=== PATIENT | male | born 1945 | race African-American/Black ===

== ENCOUNTER → 2017-02-14 | Outpatient (CLI) | payer MEDICARE, MEDICAID ==
[~2017-02-14] MED LIST: CLOP75TA2 PO; FLUT1DIS5 IH; FURO40TA5 PO; HYDR-3511 PO; LANS30CA10 PO; LIDOCAINE HCL 1% 20ML VIAL (Pyxis) INJ ONE; LOSA100T3 PO; PRO-AIR HFA IH; SIMV20TA6 PO; SODIUM BICARBONATE 8.4% 1 MEQ/ML 50ML SYR IV ONE; SPIR25TA4 PO
== END | disposition home or self-care (01) ==
LOC: US 09:23
PROVIDERS: ATTEND Specialist
DX: M79.9 Soft tissue disorder, unspecified (principal); Z85.118 Personal history of other malignant neoplasm of bronchus and lung
CPT/HCPCS: 49180; 76705; 76942; 88305; J3490

== ENCOUNTER → 2021-01-05 | Day surgery (SDC) | payer MEDICARE, MEDICAID ==
[~2021-01-05] MED LIST changes: +CLOP-31 PO; -CLOP75TA2 PO; +FENTANYL CITRATE/PF 50MCG/ML 2ML VIAL ONE; -HYDR-3511 PO; +HYDR-3512 PO; +IODIXANOL 320MG/ML 100 ML BOTTLE IV ONE; +IOHEXOL-300 100 ML BOTTLE ONE; -LANS30CA10 PO; +LANS30CA52 PO; +MIDAZOLAM HCL 2 MG/2 ML VIAL ONE; +ONDANSETRON HCL 4MG/2ML INJ IV PRN; +SIMV-43 PO; -SIMV20TA6 PO; -SODIUM BICARBONATE 8.4% 1 MEQ/ML 50ML SYR IV ONE; -SPIR25TA4 PO; +SPIR25TA6 PO
== END | disposition home or self-care (01) ==
LOC: CCL 06:19
PROVIDERS: ATTEND Specialist
DX: I70.201 Unspecified atherosclerosis of native arteries of extremities, right leg (principal); J44.9 Chronic obstructive pulmonary disease, unspecified; E78.00 Pure hypercholesterolemia, unspecified; I25.10 Atherosclerotic heart disease of native coronary artery without angina pectoris; I11.0 Hypertensive heart disease with heart failure; I50.9 Heart failure, unspecified; Z85.118 Personal history of other malignant neoplasm of bronchus and lung; Z79.899 Other long term (current) drug therapy; Z98.890 Other specified postprocedural states; Z87.891 Personal history of nicotine dependence; Z88.8 Allergy status to other drugs, medicaments and biological substances
CPT/HCPCS: 36246; 75710; C1760; C1769; C1887; C1893; C1894; J1644; J2250; J3010; J3490; Q9967

== ENCOUNTER 2021-01-13 04:26 | Inpatient (IN) | payer MEDICARE, MEDICAID ==
[~2021-01-13] VITALS: Ht 182.9 cm; Wt 64.0 kg
[~2021-01-13 04:26] MED LIST changes: -FENTANYL CITRATE/PF 50MCG/ML 2ML VIAL ONE; -IODIXANOL 320MG/ML 100 ML BOTTLE IV ONE; -IOHEXOL-300 100 ML BOTTLE ONE; -LIDOCAINE HCL 1% 20ML VIAL (Pyxis) INJ ONE; -MIDAZOLAM HCL 2 MG/2 ML VIAL ONE; -ONDANSETRON HCL 4MG/2ML INJ IV PRN
[2021-01-13] MEDS: ALBUTEROL (0.083%) 2.5MG/3ML NEB HHN SCH ×3 (04:41→06:48)
[2021-01-13] MEDS ORDERED: IPRATROPIUM BROMIDE (0.02%) 0.5MG/2.5ML NEB HHN STA (04:49)
[2021-01-13] MEDS ORDERED: METHYLPREDNISOLONE SOD SUCC 125 MG/2 ML VIAL IV STA (04:49)
[2021-01-13 05:17] LABS: HEMATOCRIT. 37.1 % (42.0-52.0); HEMOGLOBIN. 11.8 g/dL (14.0-18.0); MEAN CORPUSCULAR HEMOGLOBIN 31.5 pg (28.0-32.0); MEAN CORPUSCULAR VOLUME 99.3 fL (80.0-94.0); MEAN PLATELET VOLUME 10.7 fl (7.4-10.4); PLATELET 189 x1000/uL (130-400); RED BLOOD CELL COUNT 3.73 mill/uL (4.7-6.1); RED CELL DISTRIBUTION WIDTH 13.9 % (11.6-14.6)
[2021-01-13 05:25] LABS: CHLORIDE 112 mEq/L (98-107)
[2021-01-13] MEDS ORDERED: CEFTRIAXONE 1 G PREMIX 50 ML IV ONE (05:45)
[2021-01-13] MEDS ORDERED: AZITHROMYCIN 500 MG in DEXT 5% WATER 250 ML IV SCH (05:45)
[2021-01-13 05:52] LABS: PLATELET ESTIMATE NORMAL
[2021-01-13] MEDS ORDERED: DOCUSATE SODIUM 100MG CAPSULE PO PRN (07:15)
[2021-01-13] MEDS ORDERED: MAGNESIUM/ALUMINUM HYDROXIDE/SIMETHICONE 30ML UDC PO PRN (07:15)
[2021-01-13] MEDS ORDERED: ONDANSETRON HCL 4MG/2ML INJ IV PRN (07:15)
[2021-01-13] MEDS ORDERED: GUAIFENESIN 200MG/10ML SUGAR FREE UDC PO PRN (07:15)
[2021-01-13] MEDS ORDERED: CLONIDINE 0.1MG TABLET PO PRN (07:15)
[2021-01-13] MEDS ORDERED: IPRATROPIUM/ALBUTEROL 0.5-3(2.5)MG/3ML NEB HHN PRN ×2 (07:15→23:45)
[2021-01-13] MEDS ORDERED: ASPIRIN 325MG EC TABLET PO ONE (08:00)
[2021-01-13 08:30] VITALS: BP 147/97
[2021-01-13] MEDS: ENOXAPARIN 40MG/0.4ML SYR SUBCUT SCH (08:45)
[2021-01-13] MEDS: AMLODIPINE 10MG TABLET PO SCH (08:46)
[2021-01-13] MEDS ORDERED: FUROSEMIDE 40MG/4ML VIAL IV SCH (09:00)
[2021-01-13] MEDS ORDERED: NON FORMULARY PATIENT HOME MED XX SCH (10:00)
[2021-01-13] MEDS: SPIRONOLACTONE 25MG TABLET PO SCH (11:38)
[2021-01-13] MEDS: METHYLPREDNISOLONE SOD SUCC 125 MG/2 ML VIAL IV SCH ×3 (11:38→23:14)
[2021-01-13 12:01] VITALS: BP 139/61
[2021-01-13] MEDS: SACUBITRIL/VALSARTAN 49MG/51MG TABLET PO SCH (15:59)
[2021-01-13 16:03] VITALS: BP 130/67
[2021-01-13 20:00] VITALS: BP 124/72
[2021-01-13] MEDS: ATORVASTATIN CALCIUM 40MG TABLET PO SCH (21:41)
[2021-01-14] VITALS: BP 126/67
[2021-01-14 04:00] VITALS: BP 128/83
[2021-01-14] MEDS: AZITHROMYCIN 500 MG in DEXT 5% WATER 250 ML IV SCH (05:55)
[2021-01-14] MEDS: METHYLPREDNISOLONE SOD SUCC 125 MG/2 ML VIAL IV SCH ×3 (05:57→21:36)
[2021-01-14] MEDS ORDERED: AZITHROMYCIN 500 MG in DEXT 5% WATER 250 ML IV SCH (06:00)
[2021-01-14 06:44] LABS: HEMATOCRIT. 35.7 % (42.0-52.0); HEMOGLOBIN. 12.1 g/dL (14.0-18.0); MEAN CORPUSCULAR HEMOGLOBIN 33.3 pg (28.0-32.0); MEAN CORPUSCULAR VOLUME 97.9 fL (80.0-94.0); MEAN PLATELET VOLUME 10.9 fl (7.4-10.4); PLATELET 178 x1000/uL (130-400); RED BLOOD CELL COUNT 3.64 mill/uL (4.7-6.1); RED CELL DISTRIBUTION WIDTH 14.2 % (11.6-14.6)
[2021-01-14 06:48] LABS: CHLORIDE 105 mEq/L (98-107)
[2021-01-14 06:59] LABS: HDL CHOLESTEROL 106 mg/dL (40-59); LDL CHOLESTEROL 101 mg/dL (5-100)
[2021-01-14] MEDS ORDERED: CEFTRIAXONE 1 G PREMIX 50 ML IV SCH (07:00)
[2021-01-14] MEDS: CEFTRIAXONE 1,000 MG in DEXTROSE 5% WATER 50 ML IV SCH (07:01)
[2021-01-14 08:24] VITALS: BP 115/71
[2021-01-14 08:46] LABS: BG BASE EXCESS 2.1 mmol/L (-2.0-2.0); BG CARBOXYHEMOGLOBIN 0.3 % (0.5-1.5); BG DEOXYHEMOGLOBIN 1.1 % (0.0-5.0); BG FRACTION INSPIRED OXYGEN 30; BG HCO3 ACT 25.8 mmol/L (22.0-26.0); BG METHEMOGLOBIN 0.2 % (0.0-1.5); BG OXYGEN SATURATION 98.9 % (92.0-98.5); BG OXYHEMOGLOBIN 98.4 % (94.0-97.0); BG PCO2 36.7 mmHg (35.0-45.0); BG PH 7.464 (7.350-7.450); BG SAMPLE SITE RIGHT RADIAL; BG TOTAL HEMOGLOBIN 12.5 g/dL (12.0-18.0); BG VENT MODE NASAL CANNULA
[2021-01-14] MEDS: SPIRONOLACTONE 25MG TABLET PO SCH (08:54)
[2021-01-14] MEDS: AMLODIPINE 10MG TABLET PO SCH (08:54)
[2021-01-14] MEDS: FUROSEMIDE 40MG/4ML VIAL IV SCH (08:54)
[2021-01-14] MEDS: ENOXAPARIN 40MG/0.4ML SYR SUBCUT SCH (08:55)
[2021-01-14] MEDS: SACUBITRIL/VALSARTAN 49MG/51MG TABLET PO SCH ×2 (10:10→18:03)
[2021-01-14 12:00] VITALS: BP 110/65
[2021-01-14 13:16] LABS: PLATELET ESTIMATE NORMAL
[2021-01-14 16:00] VITALS: BP 120/61
[2021-01-14 20:00] VITALS: BP 124/58
[2021-01-14] MEDS: IPRATROPIUM/ALBUTEROL 0.5-3(2.5)MG/3ML NEB HHN SCH (21:10)
[2021-01-14] MEDS: ATORVASTATIN CALCIUM 40MG TABLET PO SCH (21:35)
[2021-01-15] VITALS (7 sets, daily range): BP systolic 92–133; BP diastolic 59–69
[2021-01-15] MEDS: IPRATROPIUM/ALBUTEROL 0.5-3(2.5)MG/3ML NEB HHN SCH ×4 (02:33→21:20)
[2021-01-15] MEDS: ACETAMINOPHEN 325MG TABLET PO PRN (04:41)
[2021-01-15] MEDS: CEFTRIAXONE 1,000 MG in DEXTROSE 5% WATER 50 ML IV SCH (05:01)
[2021-01-15] MEDS: METHYLPREDNISOLONE SOD SUCC 125 MG/2 ML VIAL IV SCH ×3 (05:01→20:31)
[2021-01-15] MEDS: AZITHROMYCIN 500 MG in DEXT 5% WATER 250 ML IV SCH (05:44)
[2021-01-15] MEDS: FUROSEMIDE 40MG/4ML VIAL IV SCH (08:17)
[2021-01-15] MEDS: SPIRONOLACTONE 25MG TABLET PO SCH (08:18)
[2021-01-15] MEDS: AMLODIPINE 10MG TABLET PO SCH (08:18)
[2021-01-15] MEDS: ENOXAPARIN 40MG/0.4ML SYR SUBCUT SCH (08:19)
[2021-01-15] MEDS: SACUBITRIL/VALSARTAN 49MG/51MG TABLET PO SCH ×2 (08:19→17:53)
[2021-01-15] MEDS: OMEPRAZOLE 20MG CAPSULE EXTENDED RELEASE PO SCH (17:53)
[2021-01-15] MEDS: ATORVASTATIN CALCIUM 40MG TABLET PO SCH (20:33)
[2021-01-16] MEDS: IPRATROPIUM/ALBUTEROL 0.5-3(2.5)MG/3ML NEB HHN SCH ×4 (01:11→20:08)
[2021-01-16 04:00] VITALS: BP 109/73
[2021-01-16] MEDS: CEFTRIAXONE 1,000 MG in DEXTROSE 5% WATER 50 ML IV SCH (05:07)
[2021-01-16] MEDS: AZITHROMYCIN 500 MG in DEXT 5% WATER 250 ML IV SCH (05:07)
[2021-01-16] MEDS: OMEPRAZOLE 20MG CAPSULE EXTENDED RELEASE PO SCH (05:46)
[2021-01-16 08:00] VITALS: BP 123/72
[2021-01-16] MEDS: ENOXAPARIN 40MG/0.4ML SYR SUBCUT SCH (09:16)
[2021-01-16] MEDS: METHYLPREDNISOLONE SOD SUCC 125 MG/2 ML VIAL IV SCH ×2 (09:16→20:58)
[2021-01-16] MEDS: FUROSEMIDE 40MG/4ML VIAL IV SCH (09:16)
[2021-01-16] MEDS: SPIRONOLACTONE 25MG TABLET PO SCH (09:17)
[2021-01-16] MEDS: AMLODIPINE 10MG TABLET PO SCH (09:17)
[2021-01-16] MEDS: SACUBITRIL/VALSARTAN 49MG/51MG TABLET PO SCH ×2 (09:17→16:32)
[2021-01-16 12:00] VITALS: BP 100/59
[2021-01-16 16:00] VITALS: BP 105/62
[2021-01-16 20:20] VITALS: BP 132/64
[2021-01-16] MEDS: ATORVASTATIN CALCIUM 40MG TABLET PO SCH (20:59)
[2021-01-17 00:25] VITALS: BP 105/53
[2021-01-17] MEDS: ACETAMINOPHEN 325MG TABLET PO PRN (01:33)
[2021-01-17] MEDS: IPRATROPIUM/ALBUTEROL 0.5-3(2.5)MG/3ML NEB HHN SCH ×3 (02:11→13:27)
[2021-01-17 04:00] VITALS: BP 103/53
[2021-01-17] MEDS: CEFTRIAXONE 1,000 MG in DEXTROSE 5% WATER 50 ML IV SCH (06:15)
[2021-01-17] MEDS: AZITHROMYCIN 500 MG in DEXT 5% WATER 250 ML IV SCH (06:32)
[2021-01-17] MEDS ORDERED: FAMOTIDINE 20MG TABLET PO SCH (06:45)
[2021-01-17 08:00] VITALS: BP 120/63
[2021-01-17] MEDS ORDERED: METHYLPREDNISOLONE SOD SUCC 125 MG/2 ML VIAL IV SCH (09:00)
[2021-01-17] MEDS: ENOXAPARIN 40MG/0.4ML SYR SUBCUT SCH (09:19)
[2021-01-17] MEDS: FUROSEMIDE 40MG/4ML VIAL IV SCH (09:19)
[2021-01-17] MEDS: SACUBITRIL/VALSARTAN 49MG/51MG TABLET PO SCH (09:20)
[2021-01-17] MEDS: SPIRONOLACTONE 25MG TABLET PO SCH (09:20)
[2021-01-17 10:22] VITALS: BP 120/63
[2021-01-17] MEDS: AMLODIPINE 10MG TABLET PO SCH (11:42)
[2021-01-17 12:00] VITALS: BP 120/65
[2021-01-17 12:18] LABS: HEMATOCRIT 41.1 % (42.0-52.0); HEMOGLOBIN 13.8 g/dL (14.0-18.0); MEAN CORPUSCULAR HEMOGLOBIN 32.9 pg (28.0-32.0); MEAN CORPUSCULAR VOLUME 97.9 fL (80.0-94.0); PLATELET 222 x1000/uL (130-400); RED CELL DISTRIBUTION WIDTH 13.4 % (11.6-14.6)
[2021-01-17 12:31] LABS: CHLORIDE 102 mEq/L (98-107)
[2021-01-17 13:07] VITALS: BP 120/65
[2021-01-27] MEDS ORDERED: OMEP20CA14 PO (08:10)
[2021-01-27] MEDS ORDERED: AMLO5TAB88 PO (08:10)
[2021-01-27] MEDS ORDERED: P20 PO (08:10)
[2021-01-27] MEDS ORDERED: MULT-1116 MT (08:10)
[2021-01-27] MEDS ORDERED: SACU1TAB4 PO (08:10)
== END 2021-01-17 15:45 | disposition home or self-care (01) | DRG 871 ==
LOC: ER 04:44 → 7WST 06:31 → ENRESERV 07:09 → 5WST 01-14 00:35
PROVIDERS: ADMIT Hospitalist; ATTEND Hospitalist
DX: A41.9 Sepsis, unspecified organism (principal); J18.9 Pneumonia, unspecified organism; J96.21 Acute and chronic respiratory failure with hypoxia; I50.23 Acute on chronic systolic (congestive) heart failure; I43 Cardiomyopathy in diseases classified elsewhere; I47.2 Ventricular tachycardia; E78.00 Pure hypercholesterolemia, unspecified; E78.5 Hyperlipidemia, unspecified; I11.0 Hypertensive heart disease with heart failure; J43.9 Emphysema, unspecified; I25.10 Atherosclerotic heart disease of native coronary artery without angina pectoris; I73.9 Peripheral vascular disease, unspecified; Z20.822 Contact with and (suspected) exposure to COVID-19; I27.20 Pulmonary hypertension, unspecified; I35.0 Nonrheumatic aortic (valve) stenosis; Z23 Encounter for immunization; Z79.82 Long term (current) use of aspirin; Z85.118 Personal history of other malignant neoplasm of bronchus and lung; Z87.891 Personal history of nicotine dependence; Z99.81 Dependence on supplemental oxygen; Z79.899 Other long term (current) drug therapy; Z92.21 Personal history of antineoplastic chemotherapy
CPT/HCPCS: 36415; 36600; 71045; 71275; 80048; 80053; 80061; 82375; 82805; 83735; 83880; 84484; 85025; 85027; 85379; 93005; 93306; 93970; 94640; 99291; J0456; J0696; J1650; J1940; J2930; J7040; J7060; Q9967; U0003; U0005

== ENCOUNTER 2021-02-17 10:16 | Inpatient (IN) | payer MEDICARE, MEDICAID ==
[~2021-02-17] VITALS: Ht 182.9 cm; Wt 63.5 kg
[~2021-02-17 10:16] MED LIST changes: +AMLO5TAB88 PO; -CLOP-31 PO; +CLOP75TA4 PO; +MULT-1116 MT; +OMEP20CA14 PO; +P20 PO; +SACU1TAB4 PO
[2021-02-17] MEDS ORDERED: SODIUM CHLORIDE 0.9% 250 ML IV ONE (11:00)
[2021-02-17 11:03] LABS: BASOPHILS % 0.4 % (0.0-2.0); EOSINOPHILS % 0.1 % (0.0-5.0); HEMATOCRIT. 30.1 % (42.0-52.0); HEMOGLOBIN. 10.1 g/dL (14.0-18.0); LYMPHOCYTES % 8.6 % (20.0-50.0); MEAN CORPUSCULAR HEMOGLOBIN 32.9 pg (28.0-32.0); MEAN CORPUSCULAR VOLUME 98.1 fL (80.0-94.0); MEAN PLATELET VOLUME 10.1 fl (7.4-10.4); NEUTROPHILS % 85.9 % (40.0-76.0); PLATELET 188 x1000/uL (130-400); RED BLOOD CELL COUNT 3.07 mill/uL (4.7-6.1); RED CELL DISTRIBUTION WIDTH 14.2 % (11.6-14.6)
[2021-02-17 11:09] LABS: CHLORIDE 103 mEq/L (98-107)
[2021-02-17 11:11] LABS: PROTHROMBIN TIME 11.2 sec (9.6-11.0)
[2021-02-17] MEDS ORDERED: ASPIRIN 325MG EC TABLET PO ONE (11:30)
[2021-02-17] MEDS ORDERED: ASPIRIN 81MG TABLET PO ONE (12:45)
[2021-02-17] MEDS ORDERED: ACETAMINOPHEN 325MG TABLET PO PRN (14:00)
[2021-02-17] MEDS ORDERED: ONDANSETRON HCL 4MG/2ML INJ IV PRN (14:00)
[2021-02-17] MEDS ORDERED: GUAIFENESIN 200MG/10ML SUGAR FREE UDC PO PRN (14:00)
[2021-02-17] MEDS ORDERED: MAGNESIUM/ALUMINUM HYDROXIDE/SIMETHICONE 30ML UDC PO PRN (14:00)
[2021-02-17] MEDS ORDERED: AMLODIPINE 5MG TABLET PO SCH (14:00)
[2021-02-17] MEDS ORDERED: HYDROCODONE/ACETAMINOPHEN 5/325MG TABLET PO PRN (14:00)
[2021-02-17] MEDS ORDERED: CLONIDINE 0.1MG TABLET PO PRN (14:00)
[2021-02-17] MEDS ORDERED: DOCUSATE SODIUM 100MG CAPSULE PO PRN (14:00)
[2021-02-17] MEDS ORDERED: FUROSEMIDE 20MG TABLET PO SCH (14:30)
[2021-02-17] MEDS ORDERED: NON FORMULARY PATIENT HOME MED XX SCH (14:45)
[2021-02-17] MEDS ORDERED: ENOXAPARIN 40MG/0.4ML SYR SUBCUT SCH (15:00)
[2021-02-17] MEDS ORDERED: FUROSEMIDE 40MG/4ML VIAL IVP NR (20:00)
[2021-02-17] MEDS ORDERED: HYDRALAZINE 20MG/ML VIAL IV PRN (20:00)
[2021-02-17] MEDS ORDERED: ATORVASTATIN CALCIUM 40MG TABLET PO SCH (21:00)
[2021-02-17] MEDS ORDERED: CARVEDILOL 6.25 MG TABLET PO SCH (21:00)
[2021-02-17] MEDS ORDERED: SACUBITRIL/VALSARTAN 49MG/51MG TABLET PO SCH (21:00)
[2021-02-17] MEDS ORDERED: MAGNESIUM 2 G PREMIX 50 ML IV NR (21:30)
[2021-02-17] MEDS ORDERED: DILTIAZEM HCL 30MG TABLET PO SCH (22:00)
[2021-02-17] MEDS: IPRATROPIUM/ALBUTEROL 0.5-3(2.5)MG/3ML NEB HHN PRN (22:15)
[2021-02-17 23:00] VITALS: BP 134/70
[2021-02-18] VITALS (7 sets, daily range): BP systolic 20–146; BP diastolic 54–112
[2021-02-18] MEDS ORDERED: ATORVASTATIN CALCIUM 40MG TABLET PO SCH (00:30)
[2021-02-18] MEDS: DILTIAZEM HCL 30MG TABLET PO SCH ×3 (00:48→16:37)
[2021-02-18] MEDS ORDERED: MAGNESIUM 2 G PREMIX 50 ML IV NR (01:00)
[2021-02-18] MEDS ORDERED: SACUBITRIL/VALSARTAN 49MG/51MG TABLET PO SCH (01:00)
[2021-02-18 07:30] LABS: BASOPHILS % 0.5 % (0.0-2.0); EOSINOPHILS % 0.3 % (0.0-5.0); HEMATOCRIT. 31.3 % (42.0-52.0); HEMOGLOBIN. 10.3 g/dL (14.0-18.0); LYMPHOCYTES % 8.1 % (20.0-50.0); MEAN CORPUSCULAR HEMOGLOBIN 32.3 pg (28.0-32.0); MEAN CORPUSCULAR VOLUME 98.1 fL (80.0-94.0); MEAN PLATELET VOLUME 10.2 fl (7.4-10.4); MONOCYTES % 6.8 % (2.0-8.0); NEUTROPHILS % 84.3 % (40.0-76.0); PLATELET 169 x1000/uL (130-400); RED BLOOD CELL COUNT 3.19 mill/uL (4.7-6.1)
[2021-02-18 07:39] LABS: CHLORIDE 109 mEq/L (98-107)
[2021-02-18] MEDS: IPRATROPIUM/ALBUTEROL 0.5-3(2.5)MG/3ML NEB HHN PRN (08:21)
[2021-02-18] MEDS ORDERED: POTASSIUM CHLORIDE 20MEQ TABLET SR PO NR (08:58)
[2021-02-18] MEDS ORDERED: CLOPIDOGREL 75MG TABLET PO SCH (09:00)
[2021-02-18] MEDS ORDERED: SPIRONOLACTONE 25MG TABLET PO SCH (09:00)
[2021-02-18] MEDS ORDERED: FUROSEMIDE 40MG/4ML VIAL IVP SCH (09:00)
[2021-02-18] MEDS ORDERED: ASPIRIN 81MG EC TABLET PO SCH (09:00)
[2021-02-18] MEDS ORDERED: POTASSIUM CHLORIDE INJ 40 MEQ in DEXT 5% WATER 250 ML IV NR (10:00)
[2021-02-18] MEDS: APIXABAN 5 MG TABLET PO SCH ×2 (11:44→16:30)
[2021-02-18] MEDS ORDERED: NALOXONE HCL 0.4MG/ML VIAL IV PRN (15:00)
== END 2021-02-18 17:10 | disposition home or self-care (01) | DRG 309 ==
LOC: ER 10:16 → EDBEDREQTM 11:25 → EDBEDREQ 11:25 → 8WST 13:10 → EDBEDREQTM 13:23 → EDBEDREQ 13:23 → ENRESERV 21:19
PROVIDERS: ADMIT Hospitalist; ATTEND Hospitalist
DX: I48.92 Unspecified atrial flutter (principal); R64 Cachexia; Z68.1 Body mass index [BMI] 19.9 or less, adult; I50.22 Chronic systolic (congestive) heart failure; Z95.811 Presence of heart assist device; I11.0 Hypertensive heart disease with heart failure; I73.9 Peripheral vascular disease, unspecified; E78.00 Pure hypercholesterolemia, unspecified; E78.5 Hyperlipidemia, unspecified; J44.9 Chronic obstructive pulmonary disease, unspecified; I25.10 Atherosclerotic heart disease of native coronary artery without angina pectoris; I27.20 Pulmonary hypertension, unspecified; I35.0 Nonrheumatic aortic (valve) stenosis; I43 Cardiomyopathy in diseases classified elsewhere; D53.9 Nutritional anemia, unspecified; Z79.82 Long term (current) use of aspirin; Z79.899 Other long term (current) drug therapy; Z82.49 Family history of ischemic heart disease and other diseases of the circulatory system; Z85.118 Personal history of other malignant neoplasm of bronchus and lung; Z87.891 Personal history of nicotine dependence; Z95.820 Peripheral vascular angioplasty status with implants and grafts; Z99.81 Dependence on supplemental oxygen; Z79.1 Long term (current) use of non-steroidal anti-inflammatories (NSAID); R00.0 Tachycardia, unspecified
CPT/HCPCS: 36415; 71045; 80048; 80053; 83735; 83880; 84132; 84484; 85025; 87070; 93005; 94640; 99291; J1650; J1940; J2405; J3475; J3480; J7030; J7060

== ENCOUNTER → 2021-07-04 | Day surgery (SDC) | payer MEDICARE, MEDICAID ==
[~2021-07-04] VITALS: Ht 180.3 cm; Wt 63.5 kg
[~2021-07-04] MED LIST changes: +ACET-2708 PO; -AMLO5TAB88 PO; +APIX5TAB MT; +ASPI-1497 MT; +ATOR40TA70 MT; +BACITRACIN 15GM TUBE TOP ONE; +BUPIVACAINE HCL/PF 0.5% (5MG/ML) 10ML ONE; +CLOP-31 PO; -CLOP75TA4 PO; +DILT30TA38 MT; +GENTAMICIN SULF 40MG/ML 2ML VIAL ONE; +HYDROMORPHONE HCL/PF 2MG/ML CPJ IV PRN; +LABETALOL 5MG/ML SYR 20 MG/4 ML SYRINGE IV PRN; +LACTATED RINGERS 1,000 ML IV SCH; -LANS30CA52 PO; +LEVO750T46 PO; +LIDOCAINE HCL 1% 20ML VIAL (Pyxis) INJ ONE; -LOSA100T3 PO; +MEPERIDINE HCL/PF 25MG/ML CPJ IV PRN; -MULT-1116 MT; +MULT-1146 PO; +ONDANSETRON HCL 4MG/2ML INJ IV PRN; +POLYMYXIN B SULFATE 500000 UNITS/VIAL ONE; -SIMV-43 PO; +SULF-13 PO
== END | disposition home or self-care (01) ==
LOC: SURGERY 11:23
PROVIDERS: ATTEND Podiatrist Foot & Ankle Surgery
DX: I73.9 Peripheral vascular disease, unspecified (principal); L97.819 Non-pressure chronic ulcer of other part of right lower leg with unspecified severity; E78.00 Pure hypercholesterolemia, unspecified; Z87.891 Personal history of nicotine dependence; Z79.82 Long term (current) use of aspirin; Z79.899 Other long term (current) drug therapy; Z98.890 Other specified postprocedural states; Z82.49 Family history of ischemic heart disease and other diseases of the circulatory system; Z20.822 Contact with and (suspected) exposure to COVID-19
CPT/HCPCS: 11044; 87070; 87075; 87077; 87186; 87205; 87426; 88311; C1713; J3490; J1580

== ENCOUNTER 2021-12-05 15:23 | Inpatient (IN) | payer MEDICARE, MEDICAID ==
[~2021-12-05] VITALS: Ht 182.9 cm; Wt 65.3 kg
[~2021-12-05 15:23] MED LIST changes: -BACITRACIN 15GM TUBE TOP ONE; -BUPIVACAINE HCL/PF 0.5% (5MG/ML) 10ML ONE; -CLOP-31 PO; -DILT30TA38 MT; -FLUT1DIS5 IH; -GENTAMICIN SULF 40MG/ML 2ML VIAL ONE; -HYDR-3512 PO; -HYDROMORPHONE HCL/PF 2MG/ML CPJ IV PRN; -LABETALOL 5MG/ML SYR 20 MG/4 ML SYRINGE IV PRN; -LACTATED RINGERS 1,000 ML IV SCH; -LIDOCAINE HCL 1% 20ML VIAL (Pyxis) INJ ONE; -MEPERIDINE HCL/PF 25MG/ML CPJ IV PRN; -ONDANSETRON HCL 4MG/2ML INJ IV PRN; -POLYMYXIN B SULFATE 500000 UNITS/VIAL ONE; -SPIR25TA6 PO
[2021-12-05] MEDS ORDERED: IPRATROPIUM BROMIDE (0.02%) 0.5MG/2.5ML NEB HHN STA (16:12)
[2021-12-05] MEDS ORDERED: ALBUTEROL (0.083%) 2.5MG/3ML NEB HHN STA (16:12)
[2021-12-05 17:15] LABS: BASOPHILS % 0.4 % (0.0-2.0); EOSINOPHILS % 0.5 % (0.0-5.0); HEMATOCRIT. 31.9 % (42.0-52.0); HEMOGLOBIN. 10.7 g/dL (14.0-18.0); LYMPHOCYTES % 7.5 % (20.0-50.0); MEAN CORPUSCULAR VOLUME 95.7 fL (80.0-94.0); MEAN PLATELET VOLUME 10.1 fl (7.4-10.4); MONOCYTES % 4.1 % (2.0-8.0); NEUTROPHILS % 87.5 % (40.0-76.0); PLATELET 190 x1000/uL (130-400); RED BLOOD CELL COUNT 3.33 mill/uL (4.7-6.1); RED CELL DISTRIBUTION WIDTH 13.8 % (11.6-14.6)
[2021-12-05 17:25] LABS: CHLORIDE 109 mEq/L (98-107); INR 1.1; PROTHROMBIN TIME 11.5 sec (9.6-11.0)
[2021-12-05] MEDS ORDERED: POTASSIUM CHLORIDE 20MEQ TABLET SR PO ONE (19:00)
[2021-12-05] MEDS ORDERED: FUROSEMIDE 40MG/4ML VIAL IVP ONE (19:00)
[2021-12-05] MEDS ORDERED: GUAIFENESIN 200MG/10ML SUGAR FREE UDC PO PRN (20:30)
[2021-12-05] MEDS ORDERED: DOCUSATE SODIUM 100MG CAPSULE PO PRN (20:30)
[2021-12-05] MEDS ORDERED: HYDRALAZINE 20MG/ML VIAL IV PRN (20:30)
[2021-12-05] MEDS ORDERED: ONDANSETRON HCL 4MG/2ML INJ IV PRN (20:30)
[2021-12-05] MEDS ORDERED: MAGNESIUM/ALUMINUM HYDROXIDE/SIMETHICONE 30ML UDC PO PRN (20:30)
[2021-12-05] MEDS ORDERED: HYDROCODONE/ACETAMINOPHEN 5/325MG TABLET PO PRN (20:30)
[2021-12-05] MEDS ORDERED: LORAZEPAM 2MG/ML CPJ IV PRN (20:30)
[2021-12-05] MEDS ORDERED: CLONIDINE 0.1MG TABLET PO PRN (20:30)
[2021-12-05] MEDS ORDERED: MORPHINE SULFATE 2 MG/ML CPJ (NOT FOR IM USE) IV PRN (20:30)
[2021-12-05] MEDS ORDERED: ACETAMINOPHEN 325MG TABLET PO PRN (20:30)
[2021-12-05] MEDS ORDERED: DIPHENHYDRAMINE 50MG/ML VIAL IV PRN (20:30)
[2021-12-05] MEDS: SODIUM CHLORIDE 0.9% INJ 3ML FLUSH IVF SCH (21:30)
[2021-12-05] MEDS: ENOXAPARIN 40MG/0.4ML SYR SUBCUT SCH (21:30)
[2021-12-05 21:34] LABS: CLARITY URINE CLEAR (CLEAR); COLOR URINE YELLOW (YELLOW); KETONES URINE NEGATIVE (NEGATIVE); LEUKOCYTE ESTERASE URINE NEGATIVE (NEGATIVE); NITRITE URINE NEGATIVE (NEGATIVE); OCCULT BLOOD URINE NEGATIVE (NEGATIVE); PH URINE 7.5 (4.5-8.0); PROTEIN URINE NEGATIVE (NEGATIVE); SPECIFIC GRAVITY URINE 1.006 (1.005-1.030)
[2021-12-05 22:15] VITALS: BP 126/66
[2021-12-05] MEDS: IPRATROPIUM/ALBUTEROL 0.5-3(2.5)MG/3ML NEB HHN PRN (23:34)
[2021-12-06] VITALS: BP 132/70
[2021-12-06] MEDS ORDERED: *PATIENT'S OWN MEDICATION STORAGE XX SCH (00:45)
[2021-12-06 04:00] VITALS: BP 120/59
[2021-12-06] MEDS: IPRATROPIUM/ALBUTEROL 0.5-3(2.5)MG/3ML NEB HHN PRN ×2 (04:52→10:19)
[2021-12-06] MEDS: SODIUM CHLORIDE 0.9% INJ 3ML FLUSH IVF SCH ×3 (05:01→22:00)
[2021-12-06 06:12] LABS: BASOPHILS % 0.6 % (0.0-2.0); EOSINOPHILS % 3.7 % (0.0-5.0); HEMATOCRIT. 31.5 % (42.0-52.0); HEMOGLOBIN. 10.6 g/dL (14.0-18.0); LYMPHOCYTES % 18.4 % (20.0-50.0); MEAN CORPUSCULAR HEMOGLOBIN 32.2 pg (28.0-32.0); MEAN CORPUSCULAR VOLUME 95.3 fL (80.0-94.0); MEAN PLATELET VOLUME 10.3 fl (7.4-10.4); NEUTROPHILS % 69.3 % (40.0-76.0); PLATELET 183 x1000/uL (130-400); RED CELL DISTRIBUTION WIDTH 13.6 % (11.6-14.6)
[2021-12-06 06:49] LABS: CHLORIDE 107 mEq/L (98-107)
[2021-12-06 08:00] VITALS: BP 138/68
[2021-12-06] MEDS ORDERED: POTASSIUM CHLORIDE 20MEQ TABLET SR PO NR (08:00)
[2021-12-06] MEDS: POTASSIUM CHLORIDE 20MEQ TABLET SR PO SCH (10:00)
[2021-12-06] MEDS: SPIRONOLACTONE 25MG TABLET PO SCH (10:11)
[2021-12-06] MEDS: ASPIRIN 81MG TABLET PO SCH (10:11)
[2021-12-06] MEDS: CLOPIDOGREL 75MG TABLET PO SCH (10:11)
[2021-12-06] MEDS: FUROSEMIDE 40MG/4ML VIAL IVP SCH (10:11)
[2021-12-06] MEDS: ENTRESTO PO SCH ×2 (11:47→17:02)
[2021-12-06 12:00] VITALS: BP 113/74
[2021-12-06] MEDS ORDERED: PNEUMOCOCCAL 23-VAL P-SAC VAC 0.5 ML IM ONE (12:00)
[2021-12-06] MEDS: GUAIFENESIN 600MG ER TABLET PO SCH ×2 (13:40→20:17)
[2021-12-06] MEDS: BUDESONIDE 0.5MG/2ML NEB HHN SCH ×2 (13:42→20:16)
[2021-12-06] MEDS: IPRATROPIUM/ALBUTEROL 0.5-3(2.5)MG/3ML NEB HHN SCH ×2 (13:42→20:16)
[2021-12-06 16:00] VITALS: BP 107/54
[2021-12-06] MEDS: OMEPRAZOLE 20MG CAPSULE EXTENDED RELEASE PO SCH (17:10)
[2021-12-06 20:00] VITALS: BP 132/87
[2021-12-06] MEDS: ENOXAPARIN 40MG/0.4ML SYR SUBCUT SCH (20:17)
[2021-12-06] MEDS ORDERED: NALOXONE HCL 0.4MG/ML VIAL IV PRN (20:30)
[2021-12-07] VITALS: BP 139/77
[2021-12-07] MEDS: IPRATROPIUM/ALBUTEROL 0.5-3(2.5)MG/3ML NEB HHN SCH ×7 (00:23→20:57)
[2021-12-07 04:00] VITALS: BP 115/74
[2021-12-07] MEDS: SODIUM CHLORIDE 0.9% INJ 3ML FLUSH IVF SCH ×3 (05:41→21:17)
[2021-12-07 06:05] LABS: BASOPHILS % 0.9 % (0.0-2.0); EOSINOPHILS % 9.9 % (0.0-5.0); HEMATOCRIT. 33.5 % (42.0-52.0); HEMOGLOBIN. 11.1 g/dL (14.0-18.0); MEAN CORPUSCULAR HEMOGLOBIN 31.5 pg (28.0-32.0); MEAN CORPUSCULAR VOLUME 95.1 fL (80.0-94.0); MEAN PLATELET VOLUME 10.7 fl (7.4-10.4); MONOCYTES % 8.2 % (2.0-8.0); PLATELET 190 x1000/uL (130-400); RED BLOOD CELL COUNT 3.52 mill/uL (4.7-6.1); RED CELL DISTRIBUTION WIDTH 13.7 % (11.6-14.6)
[2021-12-07] MEDS: OMEPRAZOLE 20MG CAPSULE EXTENDED RELEASE PO SCH ×3 (06:19→17:11)
[2021-12-07 06:24] LABS: CHLORIDE 107 mEq/L (98-107)
[2021-12-07] MEDS: BUDESONIDE 0.5MG/2ML NEB HHN SCH ×2 (07:54→20:58)
[2021-12-07 08:00] VITALS: BP 119/65
[2021-12-07] MEDS: FUROSEMIDE 40MG/4ML VIAL IVP SCH (08:43)
[2021-12-07] MEDS: SPIRONOLACTONE 25MG TABLET PO SCH (08:43)
[2021-12-07] MEDS: POTASSIUM CHLORIDE 20MEQ TABLET SR PO SCH (08:43)
[2021-12-07] MEDS: ASPIRIN 81MG TABLET PO SCH (08:44)
[2021-12-07] MEDS: GUAIFENESIN 600MG ER TABLET PO SCH ×2 (08:44→21:11)
[2021-12-07] MEDS: ENTRESTO PO SCH ×2 (08:44→17:00)
[2021-12-07] MEDS: CLOPIDOGREL 75MG TABLET PO SCH (08:44)
[2021-12-07] MEDS ORDERED: MAGNESIUM GLUCONATE 500MG TABLET PO SCH (11:00)
[2021-12-07 12:00] VITALS: BP 105/68
[2021-12-07] MEDS ORDERED: POTASSIUM CHLORIDE 20MEQ TABLET SR PO SCH (12:15)
[2021-12-07] MEDS ORDERED: PANTOPRAZOLE 40MG DR TABLET PO SCH (12:15)
[2021-12-07] MEDS: METHYLPREDNISOLONE SOD SUCC 40 MG/ML VIAL IV SCH ×2 (13:47→21:11)
[2021-12-07 16:00] VITALS: BP 118/63
[2021-12-07 20:00] VITALS: BP 139/91
[2021-12-07] MEDS: ENOXAPARIN 40MG/0.4ML SYR SUBCUT SCH (21:11)
[2021-12-08] VITALS: BP 118/66
[2021-12-08] MEDS: IPRATROPIUM/ALBUTEROL 0.5-3(2.5)MG/3ML NEB HHN SCH ×4 (00:10→12:59)
[2021-12-08 04:00] VITALS: BP 120/73
[2021-12-08] MEDS: METHYLPREDNISOLONE SOD SUCC 40 MG/ML VIAL IV SCH ×2 (06:13→14:38)
[2021-12-08] MEDS: SODIUM CHLORIDE 0.9% INJ 3ML FLUSH IVF SCH ×2 (06:13→14:38)
[2021-12-08] MEDS: OMEPRAZOLE 20MG CAPSULE EXTENDED RELEASE PO SCH ×2 (06:13→11:30)
[2021-12-08 06:22] LABS: BASOPHILS % 0.1 % (0.0-2.0); HEMATOCRIT. 32.5 % (42.0-52.0); HEMOGLOBIN. 11.1 g/dL (14.0-18.0); MEAN CORPUSCULAR HEMOGLOBIN 32.3 pg (28.0-32.0); MEAN CORPUSCULAR VOLUME 94.1 fL (80.0-94.0); MEAN PLATELET VOLUME 11.2 fl (7.4-10.4); MONOCYTES % 1.8 % (2.0-8.0); NEUTROPHILS % 86.1 % (40.0-76.0); PLATELET 194 x1000/uL (130-400); RED BLOOD CELL COUNT 3.45 mill/uL (4.7-6.1); RED CELL DISTRIBUTION WIDTH 13.7 % (11.6-14.6)
[2021-12-08 06:42] LABS: CHLORIDE 99 mEq/L (98-107)
[2021-12-08 08:00] VITALS: BP 119/65
[2021-12-08] MEDS: BUDESONIDE 0.5MG/2ML NEB HHN SCH (08:11)
[2021-12-08] MEDS: ENTRESTO PO SCH (08:55)
[2021-12-08] MEDS: SPIRONOLACTONE 25MG TABLET PO SCH (08:55)
[2021-12-08] MEDS: ASPIRIN 81MG TABLET PO SCH (08:55)
[2021-12-08] MEDS: FUROSEMIDE 40MG/4ML VIAL IVP SCH (08:55)
[2021-12-08] MEDS: POTASSIUM CHLORIDE 20MEQ TABLET SR PO SCH (08:55)
[2021-12-08] MEDS: CLOPIDOGREL 75MG TABLET PO SCH (08:55)
[2021-12-08] MEDS: GUAIFENESIN 600MG ER TABLET PO SCH (08:55)
[2021-12-08] MEDS ORDERED: MAGNESIUM 2 G PREMIX 50 ML IV SCH (11:00)
[2021-12-08 12:00] VITALS: BP 113/69
[2021-12-08 15:12] VITALS: BP 105/56
[2021-12-08 16:00] VITALS: BP 105/56
== END 2021-12-08 16:55 | disposition home health service (06) | DRG 291 ==
LOC: ER 15:23 → 8WST 20:20 → EDBEDREQTM 20:25 → EDBEDREQ 20:25 → ENRESERV 21:42
PROVIDERS: ADMIT Internal Medicine; ATTEND Internal Medicine
DX: I11.0 Hypertensive heart disease with heart failure (principal); J96.20 Acute and chronic respiratory failure, unspecified whether with hypoxia or hypercapnia; I50.23 Acute on chronic systolic (congestive) heart failure; C34.90 Malignant neoplasm of unspecified part of unspecified bronchus or lung; I48.92 Unspecified atrial flutter; J45.901 Unspecified asthma with (acute) exacerbation; I42.8 Other cardiomyopathies; J43.9 Emphysema, unspecified; D64.9 Anemia, unspecified; E78.00 Pure hypercholesterolemia, unspecified; E78.5 Hyperlipidemia, unspecified; E87.6 Hypokalemia; I35.2 Nonrheumatic aortic (valve) stenosis with insufficiency; I25.10 Atherosclerotic heart disease of native coronary artery without angina pectoris; R53.81 Other malaise; R79.89 Other specified abnormal findings of blood chemistry; Z20.822 Contact with and (suspected) exposure to COVID-19; M16.12 Unilateral primary osteoarthritis, left hip; I73.9 Peripheral vascular disease, unspecified; Z79.82 Long term (current) use of aspirin; Z79.899 Other long term (current) drug therapy; Z82.49 Family history of ischemic heart disease and other diseases of the circulatory system; Z95.820 Peripheral vascular angioplasty status with implants and grafts; Z99.81 Dependence on supplemental oxygen; Z90.2 Acquired absence of lung [part of]; Z92.21 Personal history of antineoplastic chemotherapy; Z92.3 Personal history of irradiation; Z87.891 Personal history of nicotine dependence
CPT/HCPCS: 36415; 71045; 80048; 80053; 81003; 83605; 83735; 83880; 84145; 84484; 85025; 87426; 93005; 93306; 93970; 94640; 94644; 97162; 97165; 99291; J1650; J1940; J2920; J3475; J7626

== ENCOUNTER 2021-12-10 23:17 | Emergency (ER) | payer MEDICARE, MEDICAID ==
[~2021-12-10] VITALS: Ht 167.6 cm; Wt 65.0 kg
[2021-12-10] MEDS ORDERED: IPRATROPIUM BROMIDE (0.02%) 0.5MG/2.5ML NEB HHN STA (23:42)
[2021-12-10] MEDS ORDERED: ALBUTEROL (0.083%) 2.5MG/3ML NEB HHN STA (23:42)
[2021-12-11 00:15] LABS: HEMATOCRIT. 37.5 % (42.0-52.0); HEMOGLOBIN. 12.3 g/dL (14.0-18.0); MEAN CORPUSCULAR HEMOGLOBIN 31.3 pg (28.0-32.0); MEAN CORPUSCULAR VOLUME 95.4 fL (80.0-94.0); MEAN PLATELET VOLUME 10.3 fl (7.4-10.4); PLATELET 233 x1000/uL (130-400); RED BLOOD CELL COUNT 3.94 mill/uL (4.7-6.1)
[2021-12-11 00:25] LABS: CHLORIDE 104 mEq/L (98-107)
[2021-12-11] MEDS ORDERED: METHYLPREDNISOLONE SOD SUCC 125 MG/2 ML VIAL IV ONE (01:00)
[2021-12-11 05:02] LABS: ATYPICAL LYMPHOCYTES 1
[2021-12-11 05:03] LABS: PLATELET ESTIMATE NORMAL
[2021-12-11] MEDS ORDERED: P20 MT (05:06)
[2021-12-11] MEDS ORDERED: ALBU6.7H9 INH (05:06)
[2021-12-11] MEDS ORDERED: DOXY100C5 MT (05:06)
[2021-12-11 05:15] VITALS: BP 130/80
== END 2021-12-11 05:15 | disposition home or self-care (01) ==
LOC: ER 23:17
DX: J44.1 Chronic obstructive pulmonary disease with (acute) exacerbation (principal); I10 Essential (primary) hypertension; Z79.899 Other long term (current) drug therapy; Z98.890 Other specified postprocedural states
CPT/HCPCS: 36415; 71045; 80053; 83880; 84484; 85025; 93005; 94640; 96374; 99285; J2930

== ENCOUNTER 2021-12-29 00:01 | Emergency (ER) | payer MEDICARE, MEDICAID ==
[~2021-12-29] VITALS: Ht 182.9 cm; Wt 58.4 kg
[~2021-12-29 00:01] MED LIST changes: +ALBU6.7H9 INH; +DOXY100C5 MT; +P20 MT
[2021-12-29] MEDS ORDERED: PREDNISONE 20MG TABLET PO STA (00:29)
[2021-12-29] MEDS ORDERED: ALBUTEROL (0.083%) 2.5MG/3ML NEB HHN STA (00:29)
[2021-12-29] MEDS ORDERED: IPRATROPIUM BROMIDE (0.02%) 0.5MG/2.5ML NEB HHN STA (00:29)
[2021-12-29] MEDS ORDERED: ALBU90AE INH (01:44)
[2021-12-29] MEDS ORDERED: P20 MT (01:44)
[2021-12-29 02:18] VITALS: BP 127/59
== END 2021-12-29 02:19 | disposition home or self-care (01) ==
LOC: ER 00:33
DX: J45.901 Unspecified asthma with (acute) exacerbation (principal); I10 Essential (primary) hypertension; J44.9 Chronic obstructive pulmonary disease, unspecified; Z20.822 Contact with and (suspected) exposure to COVID-19; Z85.9 Personal history of malignant neoplasm, unspecified; Z79.82 Long term (current) use of aspirin; Z87.891 Personal history of nicotine dependence
CPT/HCPCS: 71045; 87426; 94640; 99284; C9803; J7512

== ENCOUNTER → 2022-01-19 | Outpatient (CLI) | payer MEDICARE, MEDICAID ==
[~2022-01-19] MED LIST changes: +ALBU90AE INH; +BARIUM SULFATE 176 GM SUSP.RECON ONE; +BARIUM SULFATE(VOLUMEN) 450 ML ORAL.SUSP ONE; +DIATR MEGLU/DIATRIZOATE SOLN 30ML ONE
== END | disposition home or self-care (01) ==
LOC: RAD 08:24
PROVIDERS: ATTEND Internal Medicine Gastroenterology
DX: R13.10 Dysphagia, unspecified (principal)
CPT/HCPCS: 74220; Q9963

== ENCOUNTER 2022-03-03 16:43 | Inpatient (IN) | payer MEDICARE, MEDICAID ==
[~2022-03-03] VITALS: Ht 182.9 cm; Wt 52.4 kg
[~2022-03-03 16:43] MED LIST changes: -BARIUM SULFATE 176 GM SUSP.RECON ONE; -BARIUM SULFATE(VOLUMEN) 450 ML ORAL.SUSP ONE; -DIATR MEGLU/DIATRIZOATE SOLN 30ML ONE
[2022-03-03] MEDS ORDERED: ALBUTEROL (0.083%) 2.5MG/3ML NEB HHN ONE (17:00)
[2022-03-03] MEDS ORDERED: IPRATROPIUM BROMIDE (0.02%) 0.5MG/2.5ML NEB HHN ONE ×2 (17:00→20:30)
[2022-03-03] MEDS ORDERED: METHYLPREDNISOLONE SOD SUCC 125 MG/2 ML VIAL IV ONE (17:00)
[2022-03-03 18:00] LABS: BASOPHILS % 0.7 % (0.0-2.0); EOSINOPHILS % 0.1 % (0.0-5.0); HEMOGLOBIN. 10.5 g/dL (14.0-18.0); LYMPHOCYTES % 8.3 % (20.0-50.0); MEAN CORPUSCULAR HEMOGLOBIN 31.4 pg (28.0-32.0); MEAN CORPUSCULAR VOLUME 98.6 fL (80.0-94.0); MONOCYTES % 5.7 % (2.0-8.0); NEUTROPHILS % 85.2 % (40.0-76.0); PLATELET 168 x1000/uL (130-400); RED BLOOD CELL COUNT 3.34 mill/uL (4.7-6.1); RED CELL DISTRIBUTION WIDTH 15.3 % (11.6-14.6)
[2022-03-03 18:21] LABS: CHLORIDE 107 mEq/L (98-107)
[2022-03-03] MEDS ORDERED: ALBUTEROL (0.5%) 2.5MG/0.5ML NEB HHN ONE (20:30)
[2022-03-04] MEDS ORDERED: ACETAMINOPHEN 650MG/20.3ML UDC PO ONE (02:15)
[2022-03-04] MEDS ORDERED: IPRATROPIUM/ALBUTEROL 0.5-3(2.5)MG/3ML NEB HHN ONE (02:15)
[2022-03-04] MEDS: METHYLPREDNISOLONE SOD SUCC 40 MG/ML VIAL IV SCH ×3 (11:53→23:33)
[2022-03-04] MEDS: PANTOPRAZOLE SODIUM 40 MG/VIAL IV SCH (11:53)
[2022-03-04 12:00] VITALS: BP 130/80
[2022-03-04] MEDS ORDERED: LEVOFLOXACIN 500MG PREMIX 100 ML IV ONE (12:00)
[2022-03-04] MEDS: IPRATROPIUM/ALBUTEROL 0.5-3(2.5)MG/3ML NEB HHN SCH ×3 (12:24→21:20)
[2022-03-04] MEDS ORDERED: P20 PO (13:39)
[2022-03-04] MEDS ORDERED: ERGO1250 PO (13:41)
[2022-03-04] MEDS ORDERED: ALBU2.5V13 IH (13:44)
[2022-03-04 14:28] LABS: BG BASE EXCESS 0.1 mmol/L (-2.0-2.0); BG CARBOXYHEMOGLOBIN 0.3 % (0.5-1.5); BG FRACTION INSPIRED OXYGEN 32; BG HCO3 ACT 24.2 mmol/L (22.0-26.0); BG METHEMOGLOBIN 0.3 % (0.0-1.5); BG OXYHEMOGLOBIN 97.4 % (94.0-97.0); BG PCO2 37.3 mmHg (35.0-45.0); BG PO2 125.9 mmHg (75.0-100.0); BG SAMPLE SITE LEFT BRACHIAL; BG TOTAL HEMOGLOBIN 11.4 g/dL (12.0-18.0); BG VENT MODE NASAL CANNULA
[2022-03-04] MEDS: LEVOFLOXACIN 500MG PREMIX 100 ML IV SCH (14:28)
[2022-03-04] MEDS: ENOXAPARIN 40MG/0.4ML SYR SUBCUT SCH (15:31)
[2022-03-04] MEDS: POTASSIUM CHLORIDE 20MEQ TABLET SR PO SCH (15:32)
[2022-03-04 15:39] VITALS: BP 130/80
[2022-03-04] MEDS ORDERED: POTASSIUM CHLORIDE 20MEQ TABLET SR PO NR (15:45)
[2022-03-04 16:00] VITALS: BP 133/89
[2022-03-04 16:59] LABS: HEMATOCRIT 33.2 % (42.0-52.0); HEMOGLOBIN 10.4 g/dL (14.0-18.0); MEAN CORPUSCULAR HEMOGLOBIN 31.2 pg (28.0-32.0); MEAN CORPUSCULAR VOLUME 100.1 fL (80.0-94.0); PLATELET 157 x1000/uL (130-400); RED BLOOD CELL COUNT 3.32 mill/uL (4.7-6.1); RED CELL DISTRIBUTION WIDTH 15.2 % (11.6-14.6)
[2022-03-04] MEDS ORDERED: APIXABAN 5 MG TABLET PO SCH (17:00)
[2022-03-04 17:10] LABS: CHLORIDE 107 mEq/L (98-107)
[2022-03-04] MEDS: FUROSEMIDE 40MG/4ML VIAL IVP SCH (17:41)
[2022-03-04 19:16] LABS: *AMPHETAMINES SCREEN URINE NEGATIVE (NEGATIVE); *BARBITURATES SCREEN URINE NEGATIVE (NEGATIVE); *BENZODIAZEPINES SCREEN URINE NEGATIVE (NEGATIVE); *COCAINE SCREEN URINE NEGATIVE (NEGATIVE); CANNABINOID URINE SCREEN NEGATIVE (NEGATIVE); METHADONE URINE SCREEN NEGATIVE (NEGATIVE); OPIATES URINE SCREEN PRESUMTIVE POSITIVE (NEGATIVE); PHENCYCLIDINE URINE SCREEN NEGATIVE (NEGATIVE)
[2022-03-04 20:00] VITALS: BP 122/60
[2022-03-04] MEDS: LOSARTAN POTASSIUM 25 MG TABLET PO SCH (21:00)
[2022-03-04] MEDS: ATORVASTATIN CALCIUM 40MG TABLET PO SCH (21:33)
[2022-03-04] MEDS: ACETAMINOPHEN 325MG TABLET PO PRN (21:35)
[2022-03-05] VITALS: BP 117/63
[2022-03-05] MEDS: IPRATROPIUM/ALBUTEROL 0.5-3(2.5)MG/3ML NEB HHN SCH ×6 (01:01→21:41)
[2022-03-05 04:00] VITALS: BP 118/53
[2022-03-05] MEDS: FUROSEMIDE 40MG/4ML VIAL IVP SCH ×2 (06:13→17:16)
[2022-03-05] MEDS: METHYLPREDNISOLONE SOD SUCC 40 MG/ML VIAL IV SCH ×3 (06:14→21:11)
[2022-03-05 08:00] VITALS: BP 137/77
[2022-03-05] MEDS: PANTOPRAZOLE SODIUM 40 MG/VIAL IV SCH (10:21)
[2022-03-05] MEDS: POTASSIUM CHLORIDE 20MEQ TABLET SR PO SCH ×2 (10:22→17:16)
[2022-03-05] MEDS: ASPIRIN 81MG EC TABLET PO SCH (10:22)
[2022-03-05] MEDS: LOSARTAN POTASSIUM 25 MG TABLET PO SCH ×2 (10:22→21:00)
[2022-03-05] MEDS: LEVOFLOXACIN 500MG PREMIX 100 ML IV SCH (10:26)
[2022-03-05] MEDS ORDERED: FUROSEMIDE 40MG/4ML VIAL IVP SCH (10:52)
[2022-03-05 12:00] VITALS: BP 124/70
[2022-03-05] MEDS ORDERED: POTASSIUM CHLORIDE 20MEQ TABLET SR PO SCH (12:45)
[2022-03-05] MEDS: ENOXAPARIN 40MG/0.4ML SYR SUBCUT SCH (15:59)
[2022-03-05 16:00] VITALS: BP 122/61
[2022-03-05 18:12] LABS: CHLORIDE 103 mEq/L (98-107)
[2022-03-05 20:00] VITALS: BP 102/64
[2022-03-05] MEDS: ATORVASTATIN CALCIUM 40MG TABLET PO SCH (21:11)
[2022-03-06] VITALS: BP 123/67
[2022-03-06] MEDS: IPRATROPIUM/ALBUTEROL 0.5-3(2.5)MG/3ML NEB HHN SCH ×5 (01:02→16:16)
[2022-03-06 04:00] VITALS: BP 121/63
[2022-03-06] MEDS: METHYLPREDNISOLONE SOD SUCC 40 MG/ML VIAL IV SCH (05:05)
[2022-03-06] MEDS: FUROSEMIDE 40MG/4ML VIAL IVP SCH (05:05)
[2022-03-06 06:39] LABS: HEMATOCRIT. 32.7 % (42.0-52.0); HEMOGLOBIN. 10.7 g/dL (14.0-18.0); MEAN CORPUSCULAR HEMOGLOBIN 31.3 pg (28.0-32.0); MEAN CORPUSCULAR VOLUME 95.9 fL (80.0-94.0); MEAN PLATELET VOLUME 10.1 fl (7.4-10.4); PLATELET 162 x1000/uL (130-400); RED BLOOD CELL COUNT 3.41 mill/uL (4.7-6.1); RED CELL DISTRIBUTION WIDTH 14.7 % (11.6-14.6)
[2022-03-06 06:57] LABS: CHLORIDE 100 mEq/L (98-107)
[2022-03-06 08:00] VITALS: BP 145/73
[2022-03-06] MEDS: POTASSIUM CHLORIDE 20MEQ TABLET SR PO SCH (09:34)
[2022-03-06] MEDS: PANTOPRAZOLE SODIUM 40 MG/VIAL IV SCH (09:35)
[2022-03-06] MEDS: LOSARTAN POTASSIUM 25 MG TABLET PO SCH (09:35)
[2022-03-06] MEDS: ASPIRIN 81MG EC TABLET PO SCH (09:35)
[2022-03-06] MEDS: LEVOFLOXACIN 500MG PREMIX 100 ML IV SCH (11:30)
[2022-03-06] MEDS ORDERED: SPIRONOLACTONE 25MG TABLET PO SCH (11:30)
[2022-03-06] MEDS ORDERED: NON FORMULARY PATIENT HOME MED XX SCH (11:30)
[2022-03-06] MEDS: ACETAMINOPHEN 325MG TABLET PO PRN (11:44)
[2022-03-06 12:00] VITALS: BP 120/74
[2022-03-06] MEDS ORDERED: ENTRESTO 97-103MG TABLET PO SCH (12:30)
[2022-03-06] MEDS: ENOXAPARIN 40MG/0.4ML SYR SUBCUT SCH (14:48)
[2022-03-06 16:01] VITALS: BP 118/68
[2022-03-06 16:19] VITALS: BP 118/68
[2022-03-06] MEDS ORDERED: POTASSIUM CHLORIDE 20MEQ/PACKET PO SCH (17:00)
[2022-03-06] MEDS ORDERED: PREDNISONE 20MG TABLET PO SCH (18:10)
[2022-03-06 21:58] LABS: PLATELET ESTIMATE NORMAL
== END 2022-03-06 17:18 | disposition home or self-care (01) | DRG 291 ==
LOC: ER 16:43 → EDBEDREQ 20:11 → EDBEDREQTM 20:11 → MICUSO 03-04 04:32 → 7WST 03-04 10:00
PROVIDERS: ADMIT Internal Medicine; ATTEND Internal Medicine
DX: I11.0 Hypertensive heart disease with heart failure (principal); I50.23 Acute on chronic systolic (congestive) heart failure; J96.20 Acute and chronic respiratory failure, unspecified whether with hypoxia or hypercapnia; J44.1 Chronic obstructive pulmonary disease with (acute) exacerbation; C34.91 Malignant neoplasm of unspecified part of right bronchus or lung; I48.92 Unspecified atrial flutter; I42.8 Other cardiomyopathies; Z20.822 Contact with and (suspected) exposure to COVID-19; I48.0 Paroxysmal atrial fibrillation; K21.9 Gastro-esophageal reflux disease without esophagitis; M16.12 Unilateral primary osteoarthritis, left hip; R13.10 Dysphagia, unspecified; D53.9 Nutritional anemia, unspecified; E78.00 Pure hypercholesterolemia, unspecified; I25.10 Atherosclerotic heart disease of native coronary artery without angina pectoris; E78.5 Hyperlipidemia, unspecified; I35.0 Nonrheumatic aortic (valve) stenosis; R26.9 Unspecified abnormalities of gait and mobility; Z99.81 Dependence on supplemental oxygen; Z95.820 Peripheral vascular angioplasty status with implants and grafts
CPT/HCPCS: 36415; 36600; 71045; 80048; 80053; 80305; 82375; 82533; 82607; 82728; 82746; 82805; 83540; 83550; 83735; 83880; 84443; 84484; 85025; 85027; 85044; 85379; 87426; 92610; 93005; 93306; 93970; 94640; 94644; 94664; 97166; 99291; C9113; J1650; J1940; J1956; J2920; J2930

== ENCOUNTER 2022-03-14 03:42 | Emergency (ER) | payer MEDICARE, MEDICAID ==
[~2022-03-14] VITALS: Ht 182.9 cm; Wt 54.0 kg
[~2022-03-14 03:42] MED LIST changes: +ALBU2.5V13 IH; -ALBU90AE INH; -DOXY100C5 MT; +ERGO1250 PO; -LEVO750T46 PO; -P20 MT; -PRO-AIR HFA IH; -SULF-13 PO
[2022-03-14 04:55] VITALS: BP 112/57
[2022-03-14] MEDS ORDERED: PREDNISONE 20MG TABLET PO NR (06:00)
[2022-03-14] MEDS ORDERED: IPRATROPIUM/ALBUTEROL 0.5-3(2.5)MG/3ML NEB HHN NR (06:00)
[2022-03-14] MEDS ORDERED: IPRATROPIUM/ALBUTEROL 0.5-3(2.5)MG/3ML NEB HHN ONE (06:00)
== END 2022-03-14 06:10 | disposition left against medical advice (07) ==
LOC: ER 03:42
DX: J44.1 Chronic obstructive pulmonary disease with (acute) exacerbation (principal); Z79.899 Other long term (current) drug therapy; Z98.890 Other specified postprocedural states
CPT/HCPCS: 93005; 99283

== ENCOUNTER 2022-03-20 18:48 | Inpatient (IN) | payer MEDICARE, MEDICAID ==
[~2022-03-20] VITALS: Ht 180.3 cm; Wt 47.3 kg
[2022-03-20 21:03] LABS: HEMATOCRIT. 31.3 % (42.0-52.0); HEMOGLOBIN. 10.2 g/dL (14.0-18.0); MEAN CORPUSCULAR HEMOGLOBIN 31.4 pg (28.0-32.0); MEAN PLATELET VOLUME 10.2 fl (7.4-10.4); PLATELET 108 x1000/uL (130-400); RED BLOOD CELL COUNT 3.27 mill/uL (4.7-6.1); RED CELL DISTRIBUTION WIDTH 14.4 % (11.6-14.6)
[2022-03-20 21:59] LABS: CHLORIDE 105 mEq/L (98-107)
[2022-03-21] MEDS ORDERED: METHYLPREDNISOLONE SOD SUCC 125 MG/2 ML VIAL IV STA (00:19)
[2022-03-21] MEDS ORDERED: IPRATROPIUM BROMIDE (0.02%) 0.5MG/2.5ML NEB HHN STA (00:19)
[2022-03-21] MEDS ORDERED: MAGNESIUM 2 G PREMIX 50 ML IV ONE (00:30)
[2022-03-21] MEDS ORDERED: ALBUTEROL (0.083%) 2.5MG/3ML NEB HHN SCH (00:30)
[2022-03-21 01:39] LABS: PLATELET ESTIMATE DECREASED
[2022-03-21] MEDS ORDERED: PIPERACILLIN/TAZ 3.375G PREMIX 50 ML IV ONE (03:00)
[2022-03-21] MEDS ORDERED: VANCOMYCIN 1G PREMIX 200 ML IV ONE (03:00)
[2022-03-21] MEDS ORDERED: METHYLPREDNISOLONE SOD SUCC 125 MG/2 ML VIAL IV NR (04:00)
[2022-03-21] MEDS ORDERED: ACETAMINOPHEN 325MG TABLET PO PRN (11:30)
[2022-03-21] MEDS ORDERED: ONDANSETRON HCL 4MG/2ML INJ IV PRN (11:30)
[2022-03-21] MEDS ORDERED: GUAIFENESIN 200MG/10ML SUGAR FREE UDC PO PRN (11:30)
[2022-03-21] MEDS ORDERED: DOCUSATE SODIUM 100MG CAPSULE PO PRN (11:30)
[2022-03-21] MEDS ORDERED: NON FORMULARY PATIENT HOME MED XX SCH (13:15)
[2022-03-21] MEDS ORDERED: FUROSEMIDE 40MG/4ML VIAL IVP SCH (13:15)
[2022-03-21] MEDS: SPIRONOLACTONE 25MG TABLET PO SCH (14:40)
[2022-03-21] MEDS: ASPIRIN 81MG EC TABLET PO SCH (14:40)
[2022-03-21] MEDS: FUROSEMIDE 40MG/4ML VIAL IVP SCH ×2 (14:40→21:15)
[2022-03-21] MEDS: APIXABAN 5 MG TABLET PO SCH ×2 (14:41→18:00)
[2022-03-21 16:00] VITALS: BP 108/62
[2022-03-21 16:29] VITALS: BP 108/62
[2022-03-21] MEDS ORDERED: CEFTRIAXONE 1 G PREMIX 50 ML IV SCH (17:15)
[2022-03-21] MEDS: DOXYCYCLINE HYCLATE 100MG CAPSULE PO SCH (18:00)
[2022-03-21] MEDS ORDERED: SACU1TAB4 PO (19:59)
[2022-03-21 20:00] VITALS: BP 119/61
[2022-03-21] MEDS ORDERED: OMEP20TA23 PO (20:00)
[2022-03-21] MEDS ORDERED: DOCU100T PO (20:01)
[2022-03-21] MEDS: ATORVASTATIN CALCIUM 40MG TABLET PO SCH (21:15)
[2022-03-21] MEDS: IPRATROPIUM/ALBUTEROL 0.5-3(2.5)MG/3ML NEB HHN SCH (21:22)
[2022-03-21] MEDS: CEFTRIAXONE 1,000 MG in DEXTROSE 5% WATER 50 ML IV SCH (23:24)
[2022-03-22] VITALS: BP 113/62
[2022-03-22] MEDS: IPRATROPIUM/ALBUTEROL 0.5-3(2.5)MG/3ML NEB HHN SCH ×6 (01:28→23:31)
[2022-03-22 04:00] VITALS: BP 137/83
[2022-03-22 05:55] LABS: BASOPHILS % 0.3 % (0.0-2.0); EOSINOPHILS % 0.5 % (0.0-5.0); HEMOGLOBIN. 11.7 g/dL (14.0-18.0); LYMPHOCYTES % 9.8 % (20.0-50.0); MEAN CORPUSCULAR VOLUME 95.2 fL (80.0-94.0); MEAN PLATELET VOLUME 10.5 fl (7.4-10.4); MONOCYTES % 4.5 % (2.0-8.0); NEUTROPHILS % 84.9 % (40.0-76.0); PLATELET 114 x1000/uL (130-400); RED BLOOD CELL COUNT 3.78 mill/uL (4.7-6.1); RED CELL DISTRIBUTION WIDTH 14.4 % (11.6-14.6)
[2022-03-22] MEDS: DOXYCYCLINE HYCLATE 100MG CAPSULE PO SCH ×2 (05:55→17:53)
[2022-03-22 06:16] LABS: CHLORIDE 101 mEq/L (98-107)
[2022-03-22 06:53] LABS: FOLIC ACID (FOLATE) SERUM 12.2 ng/mL (>5.38)
[2022-03-22 08:00] VITALS: BP 111/64
[2022-03-22] MEDS ORDERED: PREDNISONE 20MG TABLET PO SCH (09:00)
[2022-03-22] MEDS ORDERED: PREDNISOLONE 15 MG/5 ML ORAL SYRINGE PO SCH (09:00)
[2022-03-22] MEDS: SPIRONOLACTONE 25MG TABLET PO SCH (09:21)
[2022-03-22] MEDS: ASPIRIN 81MG EC TABLET PO SCH (09:21)
[2022-03-22] MEDS: FUROSEMIDE 40MG/4ML VIAL IVP SCH ×2 (09:21→17:00)
[2022-03-22] MEDS: APIXABAN 5 MG TABLET PO SCH ×2 (09:21→17:53)
[2022-03-22 12:00] VITALS: BP 107/66
[2022-03-22 16:00] VITALS: BP 115/57
[2022-03-22] MEDS ORDERED: PANTOPRAZOLE SODIUM 40 MG/VIAL IV SCH (16:00)
[2022-03-22 16:28] LABS: TOTAL IRON BINDING CAPACITY 332 ug/dL (250-450)
[2022-03-22] MEDS ORDERED: FERROUS SULFATE 325MG TABLET PO SCH (17:10)
[2022-03-22] MEDS ORDERED: ASCORBIC ACID 500 MG TABLET PO SCH (17:10)
[2022-03-22] MEDS: CEFTRIAXONE 1,000 MG in DEXTROSE 5% WATER 50 ML IV SCH (17:53)
[2022-03-22 20:00] VITALS: BP 108/54
[2022-03-22] MEDS: ATORVASTATIN CALCIUM 40MG TABLET PO SCH (21:01)
[2022-03-23] VITALS: BP 107/43
[2022-03-23 04:00] VITALS: BP 124/72
[2022-03-23] MEDS: IPRATROPIUM/ALBUTEROL 0.5-3(2.5)MG/3ML NEB HHN SCH ×3 (04:10→12:04)
[2022-03-23] MEDS: DOXYCYCLINE HYCLATE 100MG CAPSULE PO SCH (06:21)
[2022-03-23 08:00] VITALS: BP 110/71
[2022-03-23 08:08] LABS: BASOPHILS % 0.2 % (0.0-2.0); EOSINOPHILS % 0.6 % (0.0-5.0); HEMATOCRIT. 35.7 % (42.0-52.0); HEMOGLOBIN. 11.6 g/dL (14.0-18.0); LYMPHOCYTES % 13.6 % (20.0-50.0); MEAN CORPUSCULAR VOLUME 95.1 fL (80.0-94.0); MEAN PLATELET VOLUME 10.4 fl (7.4-10.4); MONOCYTES % 5.3 % (2.0-8.0); NEUTROPHILS % 80.3 % (40.0-76.0); PLATELET 119 x1000/uL (130-400); RED BLOOD CELL COUNT 3.75 mill/uL (4.7-6.1); RED CELL DISTRIBUTION WIDTH 14.3 % (11.6-14.6)
[2022-03-23 08:34] LABS: CHLORIDE 102 mEq/L (98-107)
[2022-03-23] MEDS ORDERED: POTASSIUM CHLORIDE 20MEQ TABLET SR PO NR (08:57)
[2022-03-23 12:00] VITALS: BP 100/53
[2022-03-23 14:54] VITALS: BP 100/53
== END 2022-03-23 16:10 | disposition home or self-care (01) | DRG 291 ==
LOC: ER 18:48 → MICUSO 03-21 03:02 → 7EST 03-21 14:12
PROVIDERS: ADMIT Internal Medicine; ATTEND Internal Medicine
DX: I11.0 Hypertensive heart disease with heart failure (principal); I50.23 Acute on chronic systolic (congestive) heart failure; J18.9 Pneumonia, unspecified organism; J96.20 Acute and chronic respiratory failure, unspecified whether with hypoxia or hypercapnia; J44.1 Chronic obstructive pulmonary disease with (acute) exacerbation; I48.92 Unspecified atrial flutter; J44.0 Chronic obstructive pulmonary disease with (acute) lower respiratory infection; M86.661 Other chronic osteomyelitis, right tibia and fibula; Z68.1 Body mass index [BMI] 19.9 or less, adult; Z20.822 Contact with and (suspected) exposure to COVID-19; D53.9 Nutritional anemia, unspecified; I42.9 Cardiomyopathy, unspecified; E78.00 Pure hypercholesterolemia, unspecified; R62.7 Adult failure to thrive; I25.10 Atherosclerotic heart disease of native coronary artery without angina pectoris; K22.4 Dyskinesia of esophagus; I73.9 Peripheral vascular disease, unspecified; E80.6 Other disorders of bilirubin metabolism; E87.6 Hypokalemia; K21.9 Gastro-esophageal reflux disease without esophagitis; I48.91 Unspecified atrial fibrillation; R77.8 Other specified abnormalities of plasma proteins; E78.5 Hyperlipidemia, unspecified; N28.9 Disorder of kidney and ureter, unspecified; Z79.899 Other long term (current) drug therapy; Z85.118 Personal history of other malignant neoplasm of bronchus and lung; Z87.891 Personal history of nicotine dependence; Z92.21 Personal history of antineoplastic chemotherapy; Z95.820 Peripheral vascular angioplasty status with implants and grafts; Z99.81 Dependence on supplemental oxygen; Z79.82 Long term (current) use of aspirin; Z79.01 Long term (current) use of anticoagulants
CPT/HCPCS: 36415; 71045; 80048; 80053; 82607; 82728; 82746; 83540; 83550; 83605; 83735; 83880; 84145; 84443; 84484; 85025; 87426; 93005; 93970; 94640; 99291; C9113; J0696; J1940; J2543; J2930; J3370; J3475; J7060; J7512

== ENCOUNTER 2022-03-28 09:34 | Inpatient (IN) | payer MEDICARE, MEDICAID ==
[~2022-03-28] VITALS: Ht 180.3 cm; Wt 60.4 kg
[~2022-03-28 09:34] MED LIST changes: -ASPI-1497 MT; +DOCU100T PO; -OMEP20CA14 PO; +OMEP20TA23 PO
[2022-03-28] MEDS ORDERED: METHYLPREDNISOLONE SOD SUCC 125 MG/2 ML VIAL IV STA (09:46)
[2022-03-28] MEDS ORDERED: IPRATROPIUM BROMIDE (0.02%) 0.5MG/2.5ML NEB HHN STA (09:46)
[2022-03-28] MEDS ORDERED: ALBUTEROL (0.083%) 2.5MG/3ML NEB HHN STA (09:46)
[2022-03-28 11:03] LABS: BASOPHILS % 0.5 % (0.0-2.0); EOSINOPHILS % 1.1 % (0.0-5.0); HEMATOCRIT. 26.6 % (42.0-52.0); HEMOGLOBIN. 8.6 g/dL (14.0-18.0); LYMPHOCYTES % 9.6 % (20.0-50.0); MEAN CORPUSCULAR HEMOGLOBIN 31.2 pg (28.0-32.0); MEAN CORPUSCULAR VOLUME 96.4 fL (80.0-94.0); MEAN PLATELET VOLUME 9.6 fl (7.4-10.4); MONOCYTES % 5.6 % (2.0-8.0); NEUTROPHILS % 83.2 % (40.0-76.0); PLATELET 100 x1000/uL (130-400); RED BLOOD CELL COUNT 2.77 mill/uL (4.7-6.1); RED CELL DISTRIBUTION WIDTH 14.4 % (11.6-14.6)
[2022-03-28 11:10] LABS: CHLORIDE 107 mEq/L (98-107)
[2022-03-28] MEDS ORDERED: SODIUM CHLORIDE 0.9% 1,000 ML IV ONE (11:45)
[2022-03-28] MEDS ORDERED: FUROSEMIDE 40MG TABLET PO SCH (12:30)
[2022-03-28] MEDS ORDERED: ASPIRIN 81MG TABLET PO SCH (12:30)
[2022-03-28] MEDS: SPIRONOLACTONE 25MG TABLET PO SCH (12:30)
[2022-03-28] MEDS: FUROSEMIDE 20MG/2ML VIAL IVP SCH (13:15)
[2022-03-28] MEDS: PANTOPRAZOLE SODIUM 40 MG/VIAL IV SCH (15:00)
[2022-03-28 15:33] LABS: TOTAL IRON BINDING CAPACITY 218 ug/dL (250-450)
[2022-03-28 16:04] LABS: FOLIC ACID (FOLATE) SERUM 12.1 ng/mL (>5.38)
[2022-03-28 17:10] VITALS: BP 109/61
[2022-03-28] MEDS ORDERED: DOXY100C5 MT (17:42)
[2022-03-28] MEDS ORDERED: IPRATROPIUM/ALBUTEROL 0.5-3(2.5)MG/3ML NEB NEB PRN (18:00)
[2022-03-28] MEDS ORDERED: ONDANSETRON HCL 4MG/2ML INJ IV PRN (18:00)
[2022-03-28 20:00] VITALS: BP 117/62
[2022-03-28] MEDS: IPRATROPIUM/ALBUTEROL 0.5-3(2.5)MG/3ML NEB HHN SCH (21:03)
[2022-03-28] MEDS: BUDESONIDE 0.5MG/2ML NEB HHN SCH (21:04)
[2022-03-28] MEDS: DEXT 5%/0.45% NACL 1000ML 1,000 ML IV SCH (21:30)
[2022-03-28] MEDS: ATORVASTATIN CALCIUM 20MG TABLET PO SCH (21:31)
[2022-03-28 22:00] VITALS: BP 115/59
[2022-03-29] VITALS (18 sets, daily range): BP systolic 102–174; BP diastolic 42–83
[2022-03-29] MEDS: IPRATROPIUM/ALBUTEROL 0.5-3(2.5)MG/3ML NEB HHN SCH ×6 (01:19→20:45)
[2022-03-29 05:54] LABS: CHLORIDE 104 mEq/L (98-107); INR 1.1; PROTHROMBIN TIME 11.8 sec (9.6-11.0)
[2022-03-29 06:24] LABS: HEMOGLOBIN. 9.3 g/dL (14.0-18.0); MEAN CORPUSCULAR HEMOGLOBIN 30.8 pg (28.0-32.0); MEAN CORPUSCULAR VOLUME 95.8 fL (80.0-94.0); MEAN PLATELET VOLUME 9.9 fl (7.4-10.4); PLATELET 112 x1000/uL (130-400); RED BLOOD CELL COUNT 3.03 mill/uL (4.7-6.1); RED CELL DISTRIBUTION WIDTH 13.9 % (11.6-14.6)
[2022-03-29] MEDS: SPIRONOLACTONE 25MG TABLET PO SCH (08:21)
[2022-03-29] MEDS: FUROSEMIDE 20MG/2ML VIAL IVP SCH (08:21)
[2022-03-29] MEDS: PANTOPRAZOLE SODIUM 40 MG/VIAL IV SCH (08:26)
[2022-03-29] MEDS: BUDESONIDE 0.5MG/2ML NEB HHN SCH ×2 (09:22→20:46)
[2022-03-29 11:33] LABS: PLATELET ESTIMATE SLIGHTLY DECREASED
[2022-03-29] MEDS: DEXT 5%/0.45% NACL 1000ML 1,000 ML IV SCH (13:25)
[2022-03-29] MEDS ORDERED: CEFAZOLIN 1000MG PREMIX 50 ML IV SCH (14:00)
[2022-03-29] MEDS ORDERED: PROPOFOL 200MG/20ML VIAL IV ONE ×2 (15:12)
[2022-03-29] MEDS ORDERED: ONDANSETRON HCL 4MG/2ML INJ IV PRN (16:00)
[2022-03-29] MEDS: ACETAMINOPHEN 325MG TABLET PO PRN (16:53)
[2022-03-29] MEDS: ATORVASTATIN CALCIUM 20MG TABLET PO SCH (20:50)
[2022-03-30] VITALS (20 sets, daily range): BP systolic 87–130; BP diastolic 45–77
[2022-03-30] MEDS: IPRATROPIUM/ALBUTEROL 0.5-3(2.5)MG/3ML NEB HHN SCH ×6 (01:12→22:13)
[2022-03-30] MEDS: DEXT 5%/0.45% NACL 1000ML 1,000 ML IV SCH (05:19)
[2022-03-30 06:12] LABS: CHLORIDE 105 mEq/L (98-107)
[2022-03-30 06:19] LABS: MEAN CORPUSCULAR HEMOGLOBIN 31.1 pg (28.0-32.0); MEAN CORPUSCULAR VOLUME 95.3 fL (80.0-94.0); MEAN PLATELET VOLUME 9.9 fl (7.4-10.4); PLATELET 104 x1000/uL (130-400); RED BLOOD CELL COUNT 3.44 mill/uL (4.7-6.1); RED CELL DISTRIBUTION WIDTH 14.5 % (11.6-14.6)
[2022-03-30 07:11] LABS: HEMATOCRIT. 32.8 % (42.0-52.0); HEMOGLOBIN. 10.7 g/dL (14.0-18.0)
[2022-03-30] MEDS: BUDESONIDE 0.5MG/2ML NEB HHN SCH (08:28)
[2022-03-30] MEDS: PANTOPRAZOLE SODIUM 40 MG/VIAL IV SCH (08:47)
[2022-03-30] MEDS: FUROSEMIDE 20MG/2ML VIAL IVP SCH (08:47)
[2022-03-30] MEDS: ACETAMINOPHEN 325MG TABLET PO PRN (08:49)
[2022-03-30] MEDS: SPIRONOLACTONE 25MG TABLET PO SCH (08:49)
[2022-03-30 11:17] LABS: PLATELET ESTIMATE DECREASED
[2022-03-30] MEDS: ATORVASTATIN CALCIUM 20MG TABLET PO SCH (22:08)
[2022-03-31] VITALS (15 sets, daily range): BP systolic 90–125; BP diastolic 44–78
[2022-03-31] MEDS: DEXT 5%/0.45% NACL 1000ML 1,000 ML IV SCH (00:50)
[2022-03-31] MEDS: IPRATROPIUM/ALBUTEROL 0.5-3(2.5)MG/3ML NEB HHN SCH ×5 (01:52→20:31)
[2022-03-31] MEDS: ACETAMINOPHEN 325MG TABLET PO PRN (02:46)
[2022-03-31 06:31] LABS: CHLORIDE 105 mEq/L (98-107)
[2022-03-31 06:41] LABS: BASOPHILS % 0.4 % (0.0-2.0); EOSINOPHILS % 0.8 % (0.0-5.0); HEMATOCRIT. 28.7 % (42.0-52.0); HEMOGLOBIN. 9.4 g/dL (14.0-18.0); MEAN CORPUSCULAR HEMOGLOBIN 31.2 pg (28.0-32.0); MEAN CORPUSCULAR VOLUME 95.7 fL (80.0-94.0); MEAN PLATELET VOLUME 9.9 fl (7.4-10.4); MONOCYTES % 3.8 % (2.0-8.0); PLATELET 100 x1000/uL (130-400); RED CELL DISTRIBUTION WIDTH 14.3 % (11.6-14.6)
[2022-03-31] MEDS: BUDESONIDE 0.5MG/2ML NEB HHN SCH ×2 (08:39→20:31)
[2022-03-31] MEDS: PANTOPRAZOLE SODIUM 40 MG/VIAL IV SCH (08:39)
[2022-03-31] MEDS: FUROSEMIDE 20MG/2ML VIAL IVP SCH (08:39)
[2022-03-31] MEDS: SPIRONOLACTONE 25MG TABLET PO SCH (08:40)
[2022-03-31] MEDS ORDERED: SACUBITRIL/VALSARTAN 49MG/51MG TABLET PO SCH (21:00)
[2022-03-31] MEDS: ATORVASTATIN CALCIUM 20MG TABLET PO SCH (21:19)
[2022-04-01] MEDS ORDERED: FUROSEMIDE 40MG TABLET PO SCH (09:00)
[2022-04-01] MEDS ORDERED: PANTOPRAZOLE 40MG DR TABLET PO SCH (09:00)
== END 2022-03-31 21:45 | DRG 291 ==
LOC: ER 09:34 → EDBEDREQTM 11:58 → EDBEDREQ 11:58 → 5EST 13:14 → EDBEDREQ 13:21 → EDBEDREQTM 13:21 → EDBEDREQSVC 13:45 → EDBEDREQTM 14:11 → ENRESERV 15:58
PROVIDERS: ADMIT Internal Medicine; ATTEND Internal Medicine
PROC: 0DJ08ZZ Inspection of Upper Intestinal Tract, Via Natural or Artificial Opening Endoscopic (ICD-10-PCS; principal; 2022-03-29)
PROC: 0D20XUZ Change Feeding Device in Upper Intestinal Tract, External Approach (ICD-10-PCS; 2022-03-29)
DX: I11.0 Hypertensive heart disease with heart failure (principal); E43 Unspecified severe protein-calorie malnutrition; I50.21 Acute systolic (congestive) heart failure; J96.20 Acute and chronic respiratory failure, unspecified whether with hypoxia or hypercapnia; I48.92 Unspecified atrial flutter; Z68.1 Body mass index [BMI] 19.9 or less, adult; D61.818 Other pancytopenia; M86.661 Other chronic osteomyelitis, right tibia and fibula; C34.90 Malignant neoplasm of unspecified part of unspecified bronchus or lung; J44.1 Chronic obstructive pulmonary disease with (acute) exacerbation; Z20.822 Contact with and (suspected) exposure to COVID-19; R13.19 Other dysphagia; I42.9 Cardiomyopathy, unspecified; K29.70 Gastritis, unspecified, without bleeding; E88.09 Other disorders of plasma-protein metabolism, not elsewhere classified; R62.7 Adult failure to thrive; K22.4 Dyskinesia of esophagus; I25.10 Atherosclerotic heart disease of native coronary artery without angina pectoris; K21.9 Gastro-esophageal reflux disease without esophagitis; I73.9 Peripheral vascular disease, unspecified; I48.0 Paroxysmal atrial fibrillation; D64.9 Anemia, unspecified; T66.XXXA Radiation sickness, unspecified, initial encounter; E78.00 Pure hypercholesterolemia, unspecified; E78.5 Hyperlipidemia, unspecified; Z79.82 Long term (current) use of aspirin; Z99.81 Dependence on supplemental oxygen; Z79.899 Other long term (current) drug therapy; Z87.891 Personal history of nicotine dependence; Z90.2 Acquired absence of lung [part of]; Z92.21 Personal history of antineoplastic chemotherapy; Z95.820 Peripheral vascular angioplasty status with implants and grafts
CPT/HCPCS: 36415; 71045; 74018; 80048; 80053; 82270; 82607; 82728; 82746; 83540; 83550; 83735; 83880; 84484; 85025; 85044; 87015; 87045; 87426; 87427; 87449; 89055; 92610; 93005; 94640; 94664; 97162; 99285; C9113; C9803; J0690; J1940; J2704; J2930; J7030; J7626